=== PATIENT | female | born 1935 | race Caucasian/White ===

== ENCOUNTER 2022-10-24 16:41 | Inpatient (IN) | payer OTHER, MEDICAID ==
[~2022-10-24] VITALS: Ht 152.4 cm; Wt 78.5 kg
[2022-10-24 16:45] VITALS: BP_SYST 135; PULSE 72; RESP 18; TEMP 97.6; O2SAT 95
[2022-10-24 18:48] LABS: BASOPHILS # (AUTO) 0.1 K/uL (0.0-0.2); EOSINOPHILS # (AUTO) 0.1 K/uL (0.0-0.4); EOSINOPHILS % (AUTO) 1.1 % (0.0-4.0); HEMATOCRIT 37.5 % (36-48); HEMOGLOBIN 12.3 g/dL (12.0-16.0); LYMPHOCYTES # (AUTO) 2.8 K/uL (1.0-5.5); LYMPHOCYTES % (AUTO) 36.9 % (20.5-51.5); MEAN CORPUSCULAR HEMOGLOBIN 32 pg (27-31); MEAN CORPUSCULAR HGB CONC 33 % (32-36); MEAN CORPUSCULAR VOLUME 99 fL (79.0-98.0); MONOCYTES # (AUTO) 0.6 K/uL (0.0-1.0); MONOCYTES % (AUTO) 7.6 % (1.7-9.3); NEUTROPHILS # (AUTO) 4.1 K/uL (1.8-7.7); NEUTROPHILS % (AUTO) 53.4 % (40.0-70.0); PLATELET COUNT (AUTO) 159 K/uL (130-430); RED CELL DISTRIBUTION WIDTH 14.4 % (9.0-15.0); WHITE BLOOD COUNT (AUTO) 7.7 K/uL (4.8-10.8)
[2022-10-24 19:18] LABS: ACETAMINOPHEN 5 ug/mL (1-30); ALANINE AMINOTRANSFERASE 8 U/L (12-78); ALBUMIN 3.6 g/dL (3.4-4.8); ANION GAP 10 (5-15); ASPARTATE AMINOTRANSFERASE 14 U/L (10-37); CALCIUM 9.5 mg/dL (8.4-11.0); CHLORIDE 102 mmol/L (98-107); GLUCOSE 141 mg/dL (74-106); TOTAL BILIRUBIN 0.2 mg/dL (0.0-1.0); UREA NITROGEN, BLOOD 18 mg/dL (8-21)
[2022-10-24 19:22] LABS: ALCOHOL, BLOOD < 3 mg/dL (<10)
[2022-10-24 22:21] LABS: BILIRUBIN,URINE NEGATIVE (NEGATIVE); BLOOD, URINE NEGATIVE (NEGATIVE); CLARITY/URINE CLEAR (CLEAR); COLOR,URINE YELLOW (YELLOW); GLUCOSE,URINE NEGATIVE (NEGATIVE); KETONES,URINE NEGATIVE (NEGATIVE); LEUKOCYTE ESTERASE ,URINE 2+ (NEGATIVE); NITRITE, URINE NEGATIVE (NEGATIVE); PH,URINE 6.5 (5.0-8.0); PROTEIN URINE NEGATIVE (NEGATIVE); UROBILINOGEN,URINE 0.2 (0.2-1.0)
[2022-10-24 22:27] LABS: BARBITURATE, URINE NEGATIVE (NEG <=200); BENZODIAZEPINE, URINE NEGATIVE (NEG <=150); CANNABINOID, URINE NEGATIVE (NEG <=50); COCAINE, URINE NEGATIVE (NEG <=150); METHAMPHETAMINES SCREEN,URINE NEGATIVE (NEG <=500); OPIATE, URINE NEGATIVE (NEG <=100); PHENCYCLIDINE SCREEN,URINE NEGATIVE (NEG <=25); URINE AMPHETAMINE NEGATIVE (NEG <=500); URINE METHADONE NEGATIVE (NEG <=200); URINE OXYCODONE SCREEN NEGATIVE (NEG <=100); URINE PROPOXYPHENE SCREEN NEGATIVE (NEG <=300)
[2022-10-24 22:28] LABS: UR TRICYCLIC ANTIDEPRESSANTS NEGATIVE (NEG <=300)
[2022-10-24 22:39] LABS: BACTERIA,URINE FEW /HPF (None Seen); RBC,URINE NONE SEEN /HPF (0-3)
[2022-10-24 22:40] LABS: MUCUS,URINE None Seen /LPF (None Seen)
[2022-10-25] MEDS ORDERED: cefTRIAXone 1 GM IVPB PREMIX 50 ML IV ONE ×2 (01:30→02:35)
[2022-10-25 01:50] VITALS: BP_SYST 152; PULSE 54; RESP 20; TEMP 97.5
[2022-10-25 02:06] VITALS: O2SAT 96
[2022-10-25 10:32] VITALS: BP_SYST 143; PULSE 99; RESP 18; TEMP 97.2; O2SAT 99
[2022-10-25 12:00] VITALS: BP_SYST 126; BP_SYST 139; PULSE 44; PULSE 54; RESP 18; TEMP 97.6; O2SAT 99
[2022-10-25] MEDS ORDERED: ACETAMINOPHEN 325 MG TABLET PO PRN (13:45)
[2022-10-25 16:00] VITALS: BP_SYST 174; PULSE 82; RESP 18; TEMP 98; O2SAT 99
[2022-10-25] MEDS ORDERED: METF-379 PO (16:14)
[2022-10-25] MEDS ORDERED: MULT-1200 PO (16:14)
[2022-10-25] MEDS ORDERED: VITD2000 PO (16:14)
[2022-10-25] MEDS ORDERED: LISI20TA30 PO (16:14)
[2022-10-25] MEDS ORDERED: ACET-73 PO (16:14)
[2022-10-25] MEDS ORDERED: CINN1CAP PO (16:14)
[2022-10-25] MEDS ORDERED: TRAM50TA2 PO (16:14)
[2022-10-25] MEDS ORDERED: VITA-285 PO (16:14)
[2022-10-25] MEDS ORDERED: AMLO5TAB4 PO (16:14)
[2022-10-25] MEDS: ENOXAPARIN SODIUM 40 MG/0.4 ML SYRINGE SUBCUT SCH (20:28)
[2022-10-25] MEDS: CEFEPIME 1 GM in D5W 50 ML IV SCH (21:23)
[2022-10-26] VITALS (7 sets, daily range): BP systolic 135–167; PULSE 51–74; RESP 14–18; TEMP 96.6–97.8; O2SAT 94–98
[2022-10-26] MEDS ORDERED: NON-FORMULARY MEDICATION (Vitamin B Complex (B Complex) 1 TAB) PO SCH (09:00)
[2022-10-26] MEDS: metFORMIN HCL 500 MG TABLET PO SCH ×2 (09:16→18:02)
[2022-10-26] MEDS: amLODIPine BESYLATE 5 MG TABLET PO SCH (09:17)
[2022-10-26] MEDS: CHOLECALCIFEROL (VITAMIN D3) 2,000 UNIT TABLET PO SCH (09:18)
[2022-10-26] MEDS: MULTIVITS,CA,MINERALS/IRON/FA 1 TABLET PO SCH (09:18)
[2022-10-26] MEDS: lisinopriL 20 MG TABLET PO SCH (09:18)
[2022-10-26] MEDS: traMADol HCL HCL 50 MG TABLET (ULTRAM) PO PRN (09:19)
[2022-10-26] MEDS: CEFEPIME 1 GM in D5W 50 ML IV SCH ×2 (09:38→21:55)
[2022-10-26] MEDS: VITAMIN B COMPLEX 1 CAP/TAB PO SCH (12:56)
[2022-10-26] MEDS: INSULIN REGULAR, HUMAN 100 UNITS/ML, 3 ML VIAL (humuLIN R) SUBCUT PRN ×2 (18:04→21:00)
[2022-10-26] MEDS: ENOXAPARIN SODIUM 40 MG/0.4 ML SYRINGE SUBCUT SCH (20:56)
[2022-10-27 01:00] VITALS: BP_SYST 154; PULSE 66; RESP 18; TEMP 98.4; O2SAT 96
[2022-10-27 05:42] LABS: BASOPHILS % (AUTO) 0.4 % (0.0-2.0); EOSINOPHILS % (AUTO) 0.3 % (0.0-4.0); HEMATOCRIT 36.6 % (36-48); LYMPHOCYTES # (AUTO) 2.5 K/uL (1.0-5.5); LYMPHOCYTES % (AUTO) 28.5 % (20.5-51.5); MEAN CORPUSCULAR HEMOGLOBIN 32 pg (27-31); MEAN CORPUSCULAR HGB CONC 33 % (32-36); MEAN CORPUSCULAR VOLUME 99 fL (79.0-98.0); MONOCYTES # (AUTO) 0.8 K/uL (0.0-1.0); MONOCYTES % (AUTO) 9.4 % (1.7-9.3); NEUTROPHILS # (AUTO) 5.4 K/uL (1.8-7.7); NEUTROPHILS % (AUTO) 61.4 % (40.0-70.0); PLATELET COUNT (AUTO) 158 K/uL (130-430); RED BLOOD CELL COUNT(AUTO) 3.71 MIL/uL (4.2-6.2); RED CELL DISTRIBUTION WIDTH 14.5 % (9.0-15.0); WHITE BLOOD COUNT (AUTO) 8.8 K/uL (4.8-10.8)
[2022-10-27 06:14] LABS: ANION GAP 8 (5-15); CALCIUM 9.1 mg/dL (8.4-11.0); CHLORIDE 102 mmol/L (98-107); CREATININE 0.58 mg/dL (0.55-1.30); GLUCOSE 113 mg/dL (74-106); UREA NITROGEN, BLOOD 13 mg/dL (8-21)
[2022-10-27 07:45] VITALS: BP_SYST 139; PULSE 64; RESP 16; TEMP 97.6; O2SAT 97
[2022-10-27 08:00] VITALS: O2SAT 95
[2022-10-27] MEDS: CEFEPIME 1 GM in D5W 50 ML IV SCH ×2 (09:34→21:18)
[2022-10-27] MEDS: metFORMIN HCL 500 MG TABLET PO SCH ×2 (09:36→17:52)
[2022-10-27] MEDS: amLODIPine BESYLATE 5 MG TABLET PO SCH (09:38)
[2022-10-27] MEDS: lisinopriL 20 MG TABLET PO SCH (09:38)
[2022-10-27] MEDS: MULTIVITS,CA,MINERALS/IRON/FA 1 TABLET PO SCH (09:39)
[2022-10-27] MEDS: VITAMIN B COMPLEX 1 CAP/TAB PO SCH (09:39)
[2022-10-27] MEDS: CHOLECALCIFEROL (VITAMIN D3) 2,000 UNIT TABLET PO SCH (09:40)
[2022-10-27 11:26] VITALS: BP_SYST 150; PULSE 67; RESP 18; TEMP 98.1; O2SAT 96
[2022-10-27] MEDS: INSULIN REGULAR, HUMAN 100 UNITS/ML, 3 ML VIAL (humuLIN R) SUBCUT PRN ×2 (12:54→21:26)
[2022-10-27 16:00] VITALS: BP_SYST 133; PULSE 82; RESP 20; TEMP 97.9; O2SAT 91
[2022-10-27] MEDS: traMADol HCL HCL 50 MG TABLET (ULTRAM) PO PRN (18:37)
[2022-10-27 20:12] VITALS: BP_SYST 134; PULSE 88; RESP 17; TEMP 97.8; O2SAT 95
[2022-10-27] MEDS: ENOXAPARIN SODIUM 40 MG/0.4 ML SYRINGE SUBCUT SCH (21:19)
[2022-10-28 00:34] VITALS: BP_SYST 147; PULSE 82; RESP 16; TEMP 96.9; O2SAT 97
[2022-10-28 00:39] VITALS: O2SAT 95
[2022-10-28] MEDS: traMADol HCL HCL 50 MG TABLET (ULTRAM) PO PRN ×2 (02:00→13:27)
[2022-10-28] MEDS: MULTIVITS,CA,MINERALS/IRON/FA 1 TABLET PO SCH (08:17)
[2022-10-28] MEDS: CHOLECALCIFEROL (VITAMIN D3) 2,000 UNIT TABLET PO SCH (08:18)
[2022-10-28] MEDS: metFORMIN HCL 500 MG TABLET PO SCH (08:18)
[2022-10-28] MEDS: CEFEPIME 1 GM in D5W 50 ML IV SCH (08:26)
[2022-10-28] MEDS: VITAMIN B COMPLEX 1 CAP/TAB PO SCH (09:00)
[2022-10-28] MEDS ORDERED: amLODIPine BESYLATE 10 MG TABLET PO SCH (09:00)
[2022-10-28] MEDS: lisinopriL 20 MG TABLET PO SCH (09:29)
[2022-10-28 10:36] VITALS: BP_SYST 130; PULSE 68; RESP 16; TEMP 97.7; O2SAT 92
[2022-10-28 13:57] VITALS: BP_SYST 149; PULSE 90; RESP 20; TEMP 97.2; O2SAT 96
== END 2022-10-28 15:41 | DRG 690 ==
LOC: SED 16:41 → SMU 23:36 → OBSVTOIN 10-25 14:09
PROVIDERS: ADMIT Family Medicine; ATTEND Family Medicine
DX: N39.0 Urinary tract infection, site not specified (principal); E11.9 Type 2 diabetes mellitus without complications; M17.0 Bilateral primary osteoarthritis of knee; I10 Essential (primary) hypertension; Z20.822 Contact with and (suspected) exposure to COVID-19
CPT/HCPCS: 36415; 71045; 80048; 80053; 80307; 81000; 82962; 83037; 83735; 85025; 87040; 87081; 87086; 97110-GP; 97116-GP; 97163-GP; 97530-GP; 99285; G0378; G0480; G0481; G0482; J0692; J0696; J1650; J1815; J7060